=== PATIENT | male | born 1980 | race Caucasian/White ===

== ENCOUNTER 2017-01-04 10:47 | Emergency (ER) | payer OTHER ==
--- NOTE | 2017-01-04 11:14 | ED ---
Psychiatric Complaint - HPI Summary HPI Summary: 36 male brought in by police officers due to them feeling as though he is a risk. Patient was arrested for violating the order of protection/restraint against seeing his children last night after asking his for a divorce when he found out she was having an affair. [facility] am [facility]. Patient has been having thoughts of suicide for the past couple of days however does not have a plan. Denies homicidal ideations/thoughts and hallucinations both auditory and visual. He states he does not know if he wants to hurt his self, he is just severely depressed due to his current situation with home life. Patient has only attended couple counseling and has never been admitted or diagnosed with mental health disorders. Denies drugs and alcohol. No other PMHx besides migraines in which he take Treximet. He does complain of a migraine at this time that he has not taken any medication for. States his migraine is typical, numbness/tingling, without vision loss, neurologic changes , aura and nausea/vomiting - History Of Current Complaint Chief Complaint: EDMentalHealth Time Seen by Provider: 01/04/17 11:02 Hx Obtained From: Patient Onset/Duration: Gradual Onset, Lasting Days, Worse Since Timing: Constant Severity Initially: Mild Severity Currently: Mild Character: Depressed Aggravating Factor(s): Recent Stress Alleviating Factor(s): Nothing Associated Signs And Symptoms: Positive: Negative Has Suicidal: Reports: Thoughts. Denies: With A Plan, Demonstrates Gesture, Has Prior Attempt(s) Has Homicidal: Denies: Thoughts, With A Plan, Demonstrates Gesture, Has Prior Attempt(s) - Allergies/Home Medications Allergies/Adverse Reactions: Allergies Allergy/AdvReac Type Severity Reaction Status Date / Time Caffeine Allergy unk Verified 01/04/17 11:13 Codeine Allergy Rash Verified 01/04/17 11:12 Home Medications: Home Medications Sumatriptan-Naproxen Sodium [Treximet 85-500 mg] 1 tab PO DAILY PRN 01/04/17 [ History Confirmed 01/04/17] PMH/Surg Hx/FS Hx/Imm Hx Endocrine/Hematology History: Denies: Hx Anemia Cardiovascular History: Denies: Hx Hypertension Respiratory History: Denies: Hx Asthma Neurological History: Reports: Hx Migraine Psychiatric History: Reports: Hx Depression - Surgical History Surgery Procedure, Year, and Place: none - Immunization History Immunizations Up to Date: Yes Infectious Disease History: No Infectious Disease History: Denies: Traveled Outside the [place] in Last 30 Days - Family History Known Family History: Positive: None - Social History Alcohol Use: None Substance Use Type: Reports: None Smoking Status (MU): Never Smoked Tobacco Review of Systems Constitutional: Negative Eyes: Negative ENT: Negative Cardiovascular: Negative Respiratory: Negative Gastrointestinal: Negative Genitourinary: Negative Musculoskeletal: Negative Skin: Negative Positive: Headache Positive: Depressed All Other Systems Reviewed And Are Negative: Yes Physical Exam Triage Information Reviewed: Yes Vital Signs On Initial Exam: Initial Vitals Temp Pulse Resp BP Pulse Ox 97.6 F 86 16 137/77 99 01/04/17 10:51 01/04/17 10:51 01/04/17 10:51 01/04/17 10:51 01/04/17 10:51 Vital Signs Reviewed: Yes Appearance: Positive: Well-Appearing - laying down with lights off in position on hospital bed upon entry, tearful. trying to sleep. appears and sounds depressed, No Pain Distress, Well-Nourished Skin: Positive: Warm, Skin Color Reflects Adequate Perfusion, Dry Head/Face: Positive: Normal Head/Face Inspection Eyes: Positive: Normal, EOMI, MAREK, Conjunctiva Clear ENT: Positive: Normal ENT inspection, Hearing grossly normal, Pharynx normal, TMs normal Neck: Positive: Supple, Nontender, No Lymphadenopathy Respiratory/Lung Sounds: Positive: Clear to Auscultation, Breath Sounds Present. Negative: Rales, Rhonchi, Wheezes Cardiovascular: Positive: Normal, RRR, Pulses are Symmetrical in both Upper and Lower Extremities Abdomen Description: Positive: Nontender, No Organomegaly, Soft Bowel Sounds: Positive: Present Musculoskeletal: Positive: Normal, Strength/ROM Intact Neurological: Positive: Normal, Sensory/Motor Intact, Alert, Oriented to Person Place, Time, CN Intact II-III, Reflexes Intact, NV Bundle Intact Distally, Normal Gait, Facial Symmetry, Speech Normal Psychiatric: Positive: Depressed - patient is tearful during exam, laying in position on hospital bed. Diagnostics - Vital Signs Vital Signs Temp Pulse Resp BP Pulse Ox 01/04/17 10:51 97.6 F 86 16 137/77 99 - Laboratory Result Diagrams: 01/04/17 11:28 01/04/17 11:28 Lab Statement: Any lab studies that have been ordered have been reviewed, and results considered in the medical decision making process. Re-Evaluation - Re-Evaluation First Eval Re-Evaluation Time: 12:45 Change: Improved - patient had some relief after medication from his migraine Course/Dx - Course Course Of Treatment: patient was medically cleared and will be seen for MHE. Given food and treximet for migraine as that is what he usually takes for his chronic migraines. had some relief. no other complaints at this time. decided by mental health after evaluation he was safe to be discharged home and follow up with outpatient mental health. - Differential Dx/Clinical Impression Differential Diagnosis/HQI/PQRI: Positive: Acute Psychosis, Alcohol Intoxication , Depression, Suicide Attempt, Suicidal Ideation Provider Diagnosis: Depression, Suicidal ideations - Physician Notifications Patient Is Medically Stable For: Psych Evaluation Discharge - Discharge Plan Condition: Stable Disposition: HOME Referrals: Non Staff,Doctor [Primary Care Provider] -
[2017-01-04] MEDS ORDERED: SUMAtriptan TAB* 50 MG PO ONE (11:37)
[2017-01-04 11:38] LABS: Hematocrit 42 % (42-52); Hemoglobin 14.6 g/dl (14.0-18.0); Mean Corpuscular HGB Conc 35 g/dl (31-36); Mean Corpuscular Hemoglobin 29 pg (27-31); Mean Corpuscular Volume 85 fL (80-94); Mean Platelet Volume 7 um3 (7.4-10.4); Red Blood Count 4.96 10^6/ul (4.0-5.4); Red Cell Distribution Width 13 % (10.5-15); White Blood Count 9.1 10^3/ul (3.5-10.8)
[2017-01-04] MEDS ORDERED: Naproxen TAB* 250 MG PO ONE (11:38)
[2017-01-04 11:51] LABS: ALT 22 U/L (7-52); AST 18 U/L (13-39); Albumin 4.5 g/dL (3.2-5.2); Alkaline Phosphatase 53 U/L (34-104); Anion Gap 10 mmol/L (2-11); BUN/Creatinine Ratio 14.7 (8-20); Blood Urea Nitrogen 15 mg/dL (6-24); CO2 Carbon Dioxide 25 mmol/L (22-32); Calcium 9.6 mg/dL (8.6-10.3); Chloride 100 mmol/L (101-111); EGFR African American 106.9 (>60); EGFR Non-African American 83.1 (>60); Globulin 2.9 g/dL (2-4); Glucose 91 mg/dL (70-100); Potassium 3.7 mmol/L (3.5-5.0); Sodium 135 mmol/L (133-145); Total Protein 7.4 g/dL (6.4-8.9)
[2017-01-04 12:06] LABS: Acetaminophen < 15 mcg/mL; Alcohol < 10 mg/dL (<10); Salicylate < 2.50 mg/dL (<30)
[2017-01-04 12:16] LABS: TSH (Thyroid Stimulating Horm) 0.69 mcIU/mL (0.34-5.60)
[2017-01-04 13:32] LABS: Urine Bacteria Absent (Absent); Urine Bilirubin 1+ (Negative); Urine Glucose Negative (Negative); Urine Nitrite Negative (Negative)
[2017-01-04 13:33] LABS: Benzodiazepine Urine Screen None Detected (None Detect)
[2017-01-04 15:18] VITALS: BP 109/57
== END 2017-01-04 15:58 | disposition home or self-care (01) ==
LOC: ED 10:47
DX: F32.9 Major depressive disorder, single episode, unspecified (principal); R45.851 Suicidal ideations; R51 Headache
CPT/HCPCS: 36415; 80053; 80307; 80320; 80329; 81003; 81015; 84443; 85025; 99283; A9270-GY; G0480

== ENCOUNTER 2017-01-27 18:59 | Inpatient (IN) | payer OTHER ==
[2017-01-27 20:16] LABS: Hematocrit 42 % (42-52); Hemoglobin 14.3 g/dl (14.0-18.0); Mean Corpuscular HGB Conc 34 g/dl (31-36); Mean Corpuscular Hemoglobin 30 pg (27-31); Mean Corpuscular Volume 87 fL (80-94); Mean Platelet Volume 7 um3 (7.4-10.4); Red Blood Count 4.82 10^6/ul (4.0-5.4); Red Cell Distribution Width 13 % (10.5-15); White Blood Count 7.6 10^3/ul (3.5-10.8)
--- NOTE | 2017-01-27 20:23 | ED ---
Psychiatric Complaint - HPI Summary HPI Summary: Patient presents with SI. He says his is having an affair and when he confronted her in December about the information, she took his kids away. He has talked to a counselor at [facility] who recommended he come to the ED. He has a plan to hang himself. He denies prior attempts. He says "he is tired of feeling this way". He denies HI. - History Of Current Complaint Chief Complaint: EDMentalHealth Time Seen by Provider: 01/27/17 19:31 Hx Obtained From: Patient Onset/Duration: Gradual Onset Timing: Constant Severity Initially: Severe Severity Currently: Severe Character: Depressed Aggravating Factor(s): Recent Stress - cheated on him Alleviating Factor(s): Nothing Associated Signs And Symptoms: Positive: Sleep Disturbance, Appetite Change Has Suicidal: Reports: Thoughts, With A Plan - Allergies/Home Medications Allergies/Adverse Reactions: Allergies Allergy/AdvReac Type Severity Reaction Status Date / Time Caffeine Allergy unk Verified 01/04/17 11:13 Codeine Allergy Rash Verified 01/04/17 11:12 PMH/Surg Hx/FS Hx/Imm Hx Endocrine/Hematology History: Denies: Hx Anemia Cardiovascular History: Denies: Hx Hypertension Respiratory History: Denies: Hx Asthma Neurological History: Reports: Hx Migraine Psychiatric History: Reports: Hx Depression Denies: Hx Eating Disorder, Hx of Violent Episodes Against Others - Surgical History Surgery Procedure, Year, and Place: none Infectious Disease History: No Infectious Disease History: Denies: Traveled Outside the [place] in Last 30 Days - Family History Known Family History: Positive: None - Social History Occupation: Employed Full-time Lives: Alone Alcohol Use: None Substance Use Type: Reports: None Smoking Status (MU): Never Smoked Tobacco Review of Systems Positive: Depressed All Other Systems Reviewed And Are Negative: Yes Physical Exam Triage Information Reviewed: Yes Vital Signs On Initial Exam: Initial Vitals Temp Pulse Resp BP Pulse Ox 97.6 F 73 14 145/81 100 01/27/17 19:05 01/27/17 19:05 01/27/17 19:05 01/27/17 19:05 01/27/17 19:05 Vital Signs Reviewed: Yes Appearance: Positive: Well-Appearing, No Pain Distress, Well-Nourished Skin: Positive: Warm, Skin Color Reflects Adequate Perfusion, Dry, Soft Head/Face: Positive: Normal Head/Face Inspection Eyes: Positive: EOMI, MAREK, Conjunctiva Clear ENT: Positive: Hearing grossly normal Respiratory/Lung Sounds: Positive: Clear to Auscultation, Breath Sounds Present Cardiovascular: Positive: RRR Abdomen Description: Positive: Nontender, Soft Bowel Sounds: Positive: Present Musculoskeletal: Negative: Edema Left, Edema Right Neurological: Positive: Sensory/Motor Intact, Alert, Oriented to Person Place, Time, NV Bundle Intact Distally, Normal Gait Psychiatric: Positive: Depressed - patient is visibly upset, and weeps during our conversation AVPU Assessment: Alert - Chris Coma Scale Coma Scale Total: 15 Diagnostics - Vital Signs Vital Signs Temp Pulse Resp BP Pulse Ox 01/27/17 19:50 98.2 F 69 18 132/85 95 01/27/17 19:05 97.6 F 73 14 145/81 100 - Laboratory Lab Results: Lab Results 01/27/17 Range/Units 20:02 WBC 7.6 (3.5-10.8) 10^3/ul RBC 4.82 (4.0-5.4) 10^6/ul Hgb 14.3 (14.0-18.0) g/dl Hct 42 (42-52) % MCV 87 (80-94) fL MCH 30 (27-31) pg MCHC 34 (31-36) g/dl RDW 13 (10.5-15) % Plt Count 257 (150-450) 10^3/ul MPV 7 L (7.4-10.4) um3 Neut % (Auto) 67.0 (38-83) % Lymph % (Auto) 22.6 L (25-47) % Mcdonough % (Auto) 9.5 H (1-9) % Eos % (Auto) 0.4 (0-6) % Baso % (Auto) 0.5 (0-2) % Absolute Neuts (auto) 5.1 (1.5-7.7) 10^3/ul Absolute Lymphs (auto) 1.7 (1.0-4.8) 10^3/ul Absolute Monos (auto) 0.7 (0-0.8) 10^3/ul Absolute Eos (auto) 0 (0-0.6) 10^3/ul Absolute Basos (auto) 0 (0-0.2) 10^3/ul Absolute Nucleated RBC 0 10^3/ul Nucleated RBC % 0 Result Diagrams: 01/27/17 20:02 01/27/17 20:02 Lab Statement: Any lab studies that have been ordered have been reviewed, and results considered in the medical decision making process. Course/Dx - Differential Dx/Clinical Impression Differential Diagnosis/HQI/PQRI: Positive: Acute Psychosis, Alcohol Intoxication , Anxiety, Bipolar Disorder, Depression, Homicidal Ideation, Schizophrenia, Suicidal Ideation Provider Diagnosis: Suicidal ideation - Physician Notifications Instructed by Provider To: Admit As Inpatient Patient Is Medically Stable For: Psych Evaluation Discharge - Discharge Plan Condition: Stable Disposition: ADMITTED TO [facility]
[2017-01-27 20:34] LABS: ALT 30 U/L (7-52); AST 21 U/L (13-39); Albumin 4.5 g/dL (3.2-5.2); Alkaline Phosphatase 57 U/L (34-104); Anion Gap 11 mmol/L (2-11); BUN/Creatinine Ratio 19.6 (8-20); Blood Urea Nitrogen 19 mg/dL (6-24); CO2 Carbon Dioxide 24 mmol/L (22-32); Calcium 9.4 mg/dL (8.6-10.3); Chloride 103 mmol/L (101-111); EGFR African American 113.3 (>60); EGFR Non-African American 88.1 (>60); Globulin 2.6 g/dL (2-4); Glucose 68 mg/dL (70-100); Potassium 3.9 mmol/L (3.5-5.0); Sodium 138 mmol/L (133-145); Total Protein 7.1 g/dL (6.4-8.9)
[2017-01-27 20:44] LABS: Acetaminophen < 15 mcg/mL; Alcohol < 10 mg/dL (<10); Salicylate < 2.50 mg/dL (<30)
[2017-01-27 20:53] LABS: TSH (Thyroid Stimulating Horm) 0.87 mcIU/mL (0.34-5.60)
[2017-01-28] MEDS ORDERED: Acetaminophen TAB* 325 MG PO PRN (07:38)
[2017-01-28] MEDS ORDERED: Al Hydrox/Mg Hydrox/Simet LIQ* 30 ML UDC PO PRN (07:38)
[2017-01-28] MEDS ORDERED: Mouth Piece, Nicotine* 1 EACH CARTRIDGE INH SCH (07:38)
[2017-01-28] MEDS ORDERED: Nicotine Inhaler* 10 MG AMP INH PRN (07:38)
[2017-01-28] MEDS ORDERED: chlorproMAZINE TAB* 50 MG Q6H PRN AGITATION PO (07:39)
[2017-01-28] MEDS: Vitamin THERAPEUTIC TAB PO SCH (10:43)
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
[2017-01-28] MEDS ORDERED: LORazepam TAB(*) 0.5 MG PO ONE (16:26)
[2017-01-28 18:35] LABS: Urine Bilirubin Negative (Negative); Urine Glucose Negative (Negative); Urine Nitrite Negative (Negative)
[2017-01-28 18:48] LABS: Benzodiazepine Urine Screen None Detected (None Detect)
[2017-01-28] MEDS: Amitriptyline TAB* 25 MG PO SCH (20:23)
[2017-01-28] MEDS: LORazepam TAB(*) 1 MG PO SCH (20:23)
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
[2017-01-29] MEDS: LORazepam TAB(*) 1 MG PO SCH ×3 (09:00→20:50)
[2017-01-29] MEDS: Vitamin THERAPEUTIC TAB PO SCH (09:00)
[2017-01-29] MEDS: Amitriptyline TAB* 25 MG PO SCH (20:51)
[2017-01-30] MEDS: LORazepam TAB(*) 1 MG PO SCH ×3 (08:54→20:20)
[2017-01-30] MEDS: Vitamin THERAPEUTIC TAB PO SCH (08:54)
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
[2017-01-30] MEDS: Amitriptyline TAB* 25 MG PO SCH (20:21)
[2017-01-31] MEDS: LORazepam TAB(*) 1 MG PO SCH ×2 (08:58→13:56)
[2017-01-31] MEDS: Vitamin THERAPEUTIC TAB PO SCH (08:58)
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
[2017-01-31] MEDS: LORazepam TAB(*) 0.5 MG PO SCH (20:51)
[2017-01-31] MEDS ORDERED: Amitriptyline TAB* 50 MG PO SCH (21:00)
[2017-02-01 08:23] VITALS: BP 106/63
[2017-02-01] MEDS: LORazepam TAB(*) 0.5 MG PO SCH ×2 (09:02→14:46)
[2017-02-01] MEDS: Vitamin THERAPEUTIC TAB PO SCH (09:03)
--- NOTE | 2017-02-01 11:05 | PN ---
MHU: Group Therapy Note - Service Type Service Type: 12501 Group Psychotherapy - Cognitive Behavioral Group Therapy ( CBT):Patient was attentive and participatory in CBT programming this morning, and remained in good behavioral control. Patient expressed positive insights regarding relevant treatment interventions and goals.
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
== END 2017-02-01 15:30 | disposition home or self-care (01) | DRG 754 ==
LOC: ED 18:59 → BSU 01-28 06:21
PROVIDERS: ADMIT Internal Medicine; ATTEND Psychiatry & Neurology Psychiatry
DX: F43.21 Adjustment disorder with depressed mood (principal); R45.851 Suicidal ideations; G43.909 Migraine, unspecified, not intractable, without status migrainosus; F17.210 Nicotine dependence, cigarettes, uncomplicated; Z88.5 Allergy status to narcotic agent
CPT/HCPCS: 36415; 80053; 80307; 80320; 80329; 81003; 84443; 85025; 90853; 99222; 99231; 99238; A9270-GY; G0480